=== PATIENT | male | born 1975 | race Asian ===

== ENCOUNTER 2020-11-17 17:43 | Inpatient (IN) | payer OTHER, MEDICAID, SELFPAY ==
[~2020-11-17] VITALS: Ht 175.3 cm; Wt 96.8 kg
[2020-11-17] MEDS: methylPREDNISolone SOD SUCC/PF 62.5 MG/ML VIAL IVP SCH ×3 (06:00→22:00)
[2020-11-17 17:43] VITALS: BP_SYST 119
[2020-11-17] MEDS ORDERED: NS 500 ML IV ONE (18:00)
[2020-11-17] MEDS ORDERED: PROPOFOL DRIP 100 ML IV ONE ×2 (18:04→18:15)
[2020-11-17] MEDS ORDERED: levETIRAcetam 1,500 MG in NS 85 ML IV ONE (18:15)
[2020-11-17 18:24] LABS: BASOPHILS # (AUTO) 0.2 K/uL (0.0-0.2); BASOPHILS % (AUTO) 1.1 % (0.0-2.0); EOSINOPHILS # (AUTO) 0.5 K/uL (0.0-0.4); HEMATOCRIT 42.8 % (36-54); HEMOGLOBIN 13.9 g/dL (14.0-18.0); LYMPHOCYTES # (AUTO) 6.2 K/uL (1.0-5.5); LYMPHOCYTES % (AUTO) 41.6 % (20.5-51.5); MEAN CORPUSCULAR HEMOGLOBIN 30 pg (27-31); MEAN CORPUSCULAR HGB CONC 33 % (32-36); MEAN CORPUSCULAR VOLUME 93 fL (79.0-98.0); MONOCYTES # (AUTO) 1.4 K/uL (0.0-1.0); MONOCYTES % (AUTO) 9.6 % (1.7-9.3); NEUTROPHILS # (AUTO) 6.7 K/uL (1.8-7.7); NEUTROPHILS % (AUTO) 44.7 % (40.0-70.0); PLATELET COUNT (AUTO) 392 K/uL (130-430); RED CELL DISTRIBUTION WIDTH 14.6 % (9.0-15.0)
[2020-11-17 18:26] LABS: ANION GAP 18 (5-15); CALCIUM 8.5 mg/dL (8.4-11.0); CHLORIDE 103 mmol/L (98-107); CREATININE 1.79 mg/dL (0.55-1.30); GLUCOSE 236 mg/dL (70-99); POTASSIUM 3.6 mmol/L (3.5-5.1); SODIUM SERUM 141 mmol/L (136-145); UREA NITROGEN, BLOOD 10 mg/dL (8-21)
[2020-11-17] MEDS ORDERED: ACETAMINOPHEN 650 MG SUPP.RECT RC ONE ×2 (18:30→20:00)
[2020-11-17] MEDS ORDERED: ACETAMINOPHEN 325 MG SUPP.RECT RC ONE (18:30)
[2020-11-17 18:36] LABS: ALANINE AMINOTRANSFERASE 129 U/L (12-78); ASPARTATE AMINOTRANSFERASE 94 U/L (10-37); LACTATE DEHYDROGENASE 299 U/L (85-227); TOTAL BILIRUBIN 0.3 mg/dL (0.0-1.0)
[2020-11-17 18:48] LABS: GFR AFRICAN AMERICAN 53 mL/min (>90)
[2020-11-17 19:01] LABS: C-REACTIVE PROTEIN QUANT < 0.2 mg/dL (0-0.5)
[2020-11-17 19:09] LABS: BILIRUBIN,URINE NEGATIVE (NEGATIVE); BLOOD, URINE NEGATIVE (NEGATIVE); CLARITY/URINE CLEAR (CLEAR); COLOR,URINE YELLOW (YELLOW); GLUCOSE,URINE NEGATIVE (NEGATIVE); KETONES,URINE NEGATIVE (NEGATIVE); LEUKOCYTE ESTERASE ,URINE NEGATIVE (NEGATIVE); NITRITE, URINE NEGATIVE (NEGATIVE); PROTEIN URINE TRACE (NEGATIVE); UROBILINOGEN,URINE 0.2 (0.2-1.0)
[2020-11-17 19:11] LABS: INR 0.9 (0.80-1.20); PROTHROMBIN TIME 9.7 SECS (9.5-12.5)
[2020-11-17] MEDS ORDERED: AZITHROMYCIN 500 MG in NS 250 ML IV ONE (19:30)
[2020-11-17] MEDS ORDERED: DEXAMETHASONE SOD PHOSPHATE 10 MG/ML VIAL IVP ONE (19:30)
[2020-11-17] MEDS ORDERED: cefTRIAXone 1 GM in D5W 50 ML IV ONE (19:30)
[2020-11-17 19:48] LABS: BACTERIA,URINE FEW /HPF (None Seen); RBC,URINE 0-3 /HPF (0-3)
[2020-11-17 19:49] LABS: MUCUS,URINE None Seen /LPF (None Seen)
[2020-11-17] MEDS ORDERED: ONDANSETRON HCL 4 MG/2 ML VIAL IVP PRN (20:00)
[2020-11-17] MEDS ORDERED: levETIRAcetam 1,000 MG in NS 90 ML IV ONE (20:00)
[2020-11-17] MEDS ORDERED: cefTRIAXone 1 GM IVPB PREMIX 50 ML IV ONE (20:06)
[2020-11-17] MEDS ORDERED: AZITHROMYCIN 500 MG/VIAL (ZITHROMAX) IV ONE (20:08)
[2020-11-17] MEDS ORDERED: DEXAMETHASONE SOD PHOSPHATE 10 MG/ML VIAL ONE (20:08)
[2020-11-17] MEDS ORDERED: KCL 20 mEq in NS 1000 mL 1,000 ML IV ONE (20:55)
[2020-11-17] MEDS: ENOXAPARIN SODIUM 60 MG/0.6 ML SYRINGE SUBCUT SCH (21:00)
[2020-11-17] MEDS ORDERED: MORPHINE I.V. DRIP 100 ML IV PRN (21:15)
[2020-11-17] MEDS: POTASSIUM CHLORIDE 20 MEQ in NACL 0.9% 1,000 ML IV SCH (21:54)
[2020-11-17] MEDS: PIPERACILLIN/TAZO 4.5 GM in NS 100 ML IV SCH (22:00)
[2020-11-17] MEDS ORDERED: levETIRAcetam 1,000 MG in NS 100 ML IV ONE ×2 (22:15→22:45)
[2020-11-17] MEDS ORDERED: PROPOFOL DRIP 100 ML IV PRN (22:15)
[2020-11-17 22:37] VITALS: BP_SYST 109
[2020-11-17 22:42] VITALS: BP_SYST 104
[2020-11-18] VITALS (7 sets, daily range): BP systolic 102–123
[2020-11-18] MEDS ORDERED: levETIRAcetam 500 MG in NS 100 ML IV ONE (00:15)
[2020-11-18] MEDS ORDERED: FAMO40TA7 PO (01:43)
[2020-11-18] MEDS ORDERED: LACO200T2 PO (01:43)
[2020-11-18] MEDS ORDERED: ACET325T PO (01:43)
[2020-11-18] MEDS ORDERED: AMLO5TAB4 PO (01:43)
[2020-11-18] MEDS ORDERED: DOCU-144 PO (01:43)
[2020-11-18] MEDS ORDERED: LEVE1000 PO (01:43)
[2020-11-18] MEDS ORDERED: LIP10 PO (01:43)
[2020-11-18] MEDS ORDERED: [UNRECOGNIZED DRUG - CODE] PO (01:46)
[2020-11-18] MEDS ORDERED: ASCO500C18 PO (01:46)
[2020-11-18] MEDS ORDERED: AMIN30LI2 PO (01:46)
[2020-11-18] MEDS ORDERED: ONDA8TAB6 PO (01:46)
[2020-11-18] MEDS ORDERED: ZINC220T4 PO (01:46)
[2020-11-18] MEDS: methylPREDNISolone SOD SUCC/PF 62.5 MG/ML VIAL IVP SCH ×3 (06:00→22:00)
[2020-11-18] MEDS ORDERED: PROPOFOL DRIP 100 ML IV ONE ×2 (07:25→18:31)
[2020-11-18] MEDS: PROPOFOL DRIP 100 ML IV PRN ×3 (07:34→18:36)
[2020-11-18] MEDS: ENOXAPARIN SODIUM 60 MG/0.6 ML SYRINGE SUBCUT SCH ×2 (09:00→21:01)
[2020-11-18] MEDS: PIPERACILLIN/TAZO 4.5 GM in NS 100 ML IV SCH ×3 (09:45→20:56)
[2020-11-18] MEDS: POTASSIUM CHLORIDE 20 MEQ in NACL 0.9% 1,000 ML IV SCH ×2 (09:45→18:20)
[2020-11-18] MEDS: levETIRAcetam 2,000 MG in NS 100 ML IV SCH ×2 (10:03→20:55)
[2020-11-18] MEDS: LACOSAMIDE 100 MG TABLET NG SCH ×2 (10:03→20:53)
[2020-11-18 18:19] LABS: BASOPHILS # (AUTO) 0.1 K/uL (0.0-0.2); BASOPHILS % (AUTO) 0.7 % (0.0-2.0); EOSINOPHILS # (AUTO) 0.1 K/uL (0.0-0.4); EOSINOPHILS % (AUTO) 0.4 % (0.0-4.0); HEMATOCRIT 37.3 % (36-54); HEMOGLOBIN 12.3 g/dL (14.0-18.0); LYMPHOCYTES # (AUTO) 1.4 K/uL (1.0-5.5); LYMPHOCYTES % (AUTO) 10.1 % (20.5-51.5); MEAN CORPUSCULAR HEMOGLOBIN 30 pg (27-31); MEAN CORPUSCULAR HGB CONC 33 % (32-36); MEAN CORPUSCULAR VOLUME 90 fL (79.0-98.0); MONOCYTES # (AUTO) 0.9 K/uL (0.0-1.0); MONOCYTES % (AUTO) 6.7 % (1.7-9.3); NEUTROPHILS # (AUTO) 11.2 K/uL (1.8-7.7); NEUTROPHILS % (AUTO) 82.1 % (40.0-70.0); PLATELET COUNT (AUTO) 129 K/uL (130-430); RED BLOOD CELL COUNT(AUTO) 4.14 MIL/uL (4.2-6.2); RED CELL DISTRIBUTION WIDTH 14.7 % (9.0-15.0); WHITE BLOOD COUNT (AUTO) 13.7 K/uL (4.8-10.8)
[2020-11-18 18:58] LABS: ALBUMIN 2.8 g/dL (3.4-4.8); CALCIUM 8.3 mg/dL (8.4-11.0); CREATININE 0.89 mg/dL (0.55-1.30); TOTAL BILIRUBIN 0.6 mg/dL (0.0-1.0)
[2020-11-18] MEDS ORDERED: ENOXAPARIN SODIUM 60 MG/0.6 ML SYRINGE ONE (20:31)
[2020-11-18] MEDS ORDERED: LACOSAMIDE 100 MG TABLET ONE (20:32)
[2020-11-19 00:26] VITALS: BP_SYST 105
[2020-11-19] MEDS: PROPOFOL DRIP 100 ML IV PRN ×2 (00:44→05:13)
[2020-11-19] MEDS ORDERED: methylPREDNISolone SOD SUCC 40 MG/ML VIAL ONE (01:36)
[2020-11-19] MEDS ORDERED: methylPREDNISolone SOD SUCC/PF 62.5 MG/ML VIAL ONE ×3 (01:39→21:58)
[2020-11-19] MEDS: POTASSIUM CHLORIDE 20 MEQ in NACL 0.9% 1,000 ML IV SCH ×3 (05:10→22:24)
[2020-11-19] MEDS: methylPREDNISolone SOD SUCC/PF 62.5 MG/ML VIAL IVP SCH ×3 (05:11→22:00)
[2020-11-19] MEDS: PIPERACILLIN/TAZO 4.5 GM in NS 100 ML IV SCH ×3 (05:11→22:01)
[2020-11-19 07:24] VITALS: BP_SYST 110
[2020-11-19] MEDS: LACOSAMIDE 100 MG TABLET NG SCH ×2 (08:55→21:14)
[2020-11-19] MEDS: levETIRAcetam 2,000 MG in NS 100 ML IV SCH ×2 (08:55→20:02)
[2020-11-19] MEDS: ENOXAPARIN SODIUM 60 MG/0.6 ML SYRINGE SUBCUT SCH ×2 (08:58→21:16)
[2020-11-19 10:20] VITALS: BP_SYST 122
[2020-11-19] MEDS: FAMOTIDINE PF 20 MG/2 ML VIAL IVP SCH (11:30)
[2020-11-19] MEDS ORDERED: FAMOTIDINE PF 20 MG/2 ML VIAL ONE (13:20)
[2020-11-19] MEDS ORDERED: ENOXAPARIN SODIUM 60 MG/0.6 ML SYRINGE ONE (21:07)
[2020-11-19] MEDS ORDERED: LACOSAMIDE 100 MG TABLET ONE (21:08)
[2020-11-20 02:20] VITALS: BP_SYST 133
[2020-11-20] MEDS: methylPREDNISolone SOD SUCC/PF 62.5 MG/ML VIAL IVP SCH ×3 (06:00→22:59)
[2020-11-20] MEDS: PIPERACILLIN/TAZO 4.5 GM in NS 100 ML IV SCH ×3 (06:00→22:59)
[2020-11-20 08:00] VITALS: BP_SYST 153
[2020-11-20 08:20] LABS: BASOPHILS % (AUTO) 0.3 % (0.0-2.0); HEMATOCRIT 38.9 % (36-54); HEMOGLOBIN 13.1 g/dL (14.0-18.0); LYMPHOCYTES # (AUTO) 0.7 K/uL (1.0-5.5); LYMPHOCYTES % (AUTO) 10.4 % (20.5-51.5); MEAN CORPUSCULAR HEMOGLOBIN 30 pg (27-31); MEAN CORPUSCULAR HGB CONC 34 % (32-36); MEAN CORPUSCULAR VOLUME 89 fL (79.0-98.0); MONOCYTES # (AUTO) 0.6 K/uL (0.0-1.0); MONOCYTES % (AUTO) 8.4 % (1.7-9.3); NEUTROPHILS # (AUTO) 5.3 K/uL (1.8-7.7); NEUTROPHILS % (AUTO) 80.9 % (40.0-70.0); PLATELET COUNT (AUTO) 231 K/uL (130-430); RED BLOOD CELL COUNT(AUTO) 4.39 MIL/uL (4.2-6.2); RED CELL DISTRIBUTION WIDTH 14.5 % (9.0-15.0); WHITE BLOOD COUNT (AUTO) 6.6 K/uL (4.8-10.8)
[2020-11-20] MEDS: POTASSIUM CHLORIDE 20 MEQ in NACL 0.9% 1,000 ML IV SCH ×2 (08:36→18:56)
[2020-11-20 08:48] LABS: ALBUMIN 2.9 g/dL (3.4-4.8); CALCIUM 8.8 mg/dL (8.4-11.0); CREATININE 0.89 mg/dL (0.55-1.30); POTASSIUM 4.1 mmol/L (3.5-5.1); TOTAL BILIRUBIN 0.4 mg/dL (0.0-1.0)
[2020-11-20] MEDS: FAMOTIDINE PF 20 MG/2 ML VIAL IVP SCH (09:30)
[2020-11-20] MEDS: ENOXAPARIN SODIUM 60 MG/0.6 ML SYRINGE SUBCUT SCH ×2 (09:30→21:02)
[2020-11-20] MEDS: levETIRAcetam 2,000 MG in NS 100 ML IV SCH ×2 (09:30→20:59)
[2020-11-20] MEDS: LACOSAMIDE 100 MG TABLET NG SCH ×2 (09:30→20:59)
[2020-11-20 10:41] VITALS: BP_SYST 153
[2020-11-20 12:00] VITALS: BP_SYST 129
[2020-11-20 16:02] VITALS: BP_SYST 149
[2020-11-20 20:00] VITALS: BP_SYST 142
[2020-11-21 02:20] VITALS: BP_SYST 153
[2020-11-21] MEDS: POTASSIUM CHLORIDE 20 MEQ in NACL 0.9% 1,000 ML IV SCH ×2 (05:49→14:54)
[2020-11-21] MEDS: PIPERACILLIN/TAZO 4.5 GM in NS 100 ML IV SCH ×2 (05:50→13:29)
[2020-11-21] MEDS: methylPREDNISolone SOD SUCC/PF 62.5 MG/ML VIAL IVP SCH ×2 (05:51→13:29)
[2020-11-21 08:37] LABS: ALBUMIN 2.9 g/dL (3.4-4.8); CALCIUM 8.8 mg/dL (8.4-11.0); CREATININE 0.84 mg/dL (0.55-1.30); POTASSIUM 4.7 mmol/L (3.5-5.1); TOTAL BILIRUBIN 0.3 mg/dL (0.0-1.0)
[2020-11-21 10:25] VITALS: BP_SYST 145
[2020-11-21] MEDS: levETIRAcetam 2,000 MG in NS 100 ML IV SCH (10:25)
[2020-11-21] MEDS: LACOSAMIDE 100 MG TABLET NG SCH (10:25)
[2020-11-21] MEDS: ENOXAPARIN SODIUM 60 MG/0.6 ML SYRINGE SUBCUT SCH (10:25)
[2020-11-21] MEDS: FAMOTIDINE PF 20 MG/2 ML VIAL IVP SCH (10:25)
[2020-11-21 12:46] VITALS: BP_SYST 145
[2020-11-21 16:26] VITALS: BP_SYST 137
[2020-11-21] MEDS ORDERED: ROCURONIUM BROMIDE 10 MG/ML (ZEMURON) IV ONE (16:44)
[2020-11-21] MEDS ORDERED: ETOMIDATE 20 MG/ 10 ML VIAL (AMIDATE) IVP ONE (16:44)
== END 2020-11-21 16:45 | DRG 208 ==
LOC: SED 17:43 → SIC 19:46 → STU 11-20 01:52
PROVIDERS: ADMIT Family Medicine; ATTEND Family Medicine
PROC: 5A1945Z Respiratory Ventilation, 24-96 Consecutive Hours (ICD-10-PCS; principal; 2020-11-17)
PROC: 0BH17EZ Insertion of Endotracheal Airway into Trachea, Via Natural or Artificial Opening (ICD-10-PCS; 2020-11-17)
DX: U07.1 COVID-19 (principal); J96.01 Acute respiratory failure with hypoxia; J12.82 Pneumonia due to coronavirus disease 2019; N17.9 Acute kidney failure, unspecified; C71.9 Malignant neoplasm of brain, unspecified; I10 Essential (primary) hypertension; G40.901 Epilepsy, unspecified, not intractable, with status epilepticus; K75.9 Inflammatory liver disease, unspecified
CPT/HCPCS: 36415; 36600; 70450-TC; 71045; 76376; 76700-TC; 80053; 81000-TC; 82550-TC; 82728; 82803-TC; 83605; 83615-TC; 83880; 84484; 85025; 85379; 85384-TC; 85610-TC; 85730-TC; 86140; 87040-TC; 87081; 87086; 92610-GN; 93005; 94002; 94003; 94640; 94760; 96365; 96375; 99291; J0456; J0696; J1030; J1100; J1650; J1953; J2543; J2704; J2930; J3480; J3490; J7030; J7050

== ENCOUNTER 2022-03-23 10:01 | Emergency (ER) | payer OTHER, MEDICAID ==
[~2022-03-23 10:01] MED LIST: ACET325T PO; AMIN30LI2 PO; AMLO5TAB4 PO; ASCO500C18 PO; DOCU-144 PO; FAMO40TA7 PO; LACO200T2 PO; LEVE1000 PO; LIP10 PO; ONDA8TAB6 PO; ZINC220T4 PO; [UNRECOGNIZED DRUG - CODE] PO
[2022-03-23] MEDS ORDERED: levETIRAcetam 750 MG in NS 100 ML IV ONE (10:15)
[2022-03-23 10:44] LABS: BASOPHILS # (AUTO) 0.1 K/uL (0.0-0.2); BASOPHILS % (AUTO) 0.9 % (0.0-2.0); EOSINOPHILS % (AUTO) 0.6 % (0.0-4.0); HEMATOCRIT 49.5 % (36-54); HEMOGLOBIN 16.5 g/dL (14.0-18.0); LYMPHOCYTES # (AUTO) 0.7 K/uL (1.0-5.5); LYMPHOCYTES % (AUTO) 8.8 % (20.5-51.5); MEAN CORPUSCULAR HEMOGLOBIN 31 pg (27-31); MEAN CORPUSCULAR HGB CONC 33 % (32-36); MEAN CORPUSCULAR VOLUME 92 fL (79.0-98.0); MONOCYTES # (AUTO) 0.5 K/uL (0.0-1.0); MONOCYTES % (AUTO) 7.1 % (1.7-9.3); NEUTROPHILS # (AUTO) 6.3 K/uL (1.8-7.7); NEUTROPHILS % (AUTO) 82.6 % (40.0-70.0); PLATELET COUNT (AUTO) 264 K/uL (130-430); RED BLOOD CELL COUNT(AUTO) 5.37 MIL/uL (4.2-6.2); RED CELL DISTRIBUTION WIDTH 13.6 % (9.0-15.0); WHITE BLOOD COUNT (AUTO) 7.6 K/uL (4.8-10.8)
[2022-03-23 10:49] LABS: CALCIUM 8.4 mg/dL (8.4-11.0); CREATININE 1.03 mg/dL (0.55-1.30); POTASSIUM 4.1 mmol/L (3.5-5.1)
[2022-03-23 10:55] LABS: ALBUMIN 3.4 g/dL (3.4-4.8); TOTAL BILIRUBIN 0.2 mg/dL (0.0-1.0)
[2022-03-23 11:11] VITALS: BP_SYST 116
[2022-03-23 14:51] VITALS: BP_SYST 140
== END 2022-03-23 14:51 ==
LOC: SED 10:01
DX: R56.9 Unspecified convulsions (principal); Z88.0 Allergy status to penicillin
CPT/HCPCS: 36415; 80053; 83605; 85025; 96365; 99284; J1953